=== PATIENT | female | born 1935 | race Caucasian/White ===

== ENCOUNTER 2018-08-30 09:03 | Inpatient (IN) | payer MEDICARE, BC ==
[2018-08-30] MEDS ORDERED: Metoprolol Tartrate 50 MG Tab PO ONE (09:28)
[2018-08-30] MEDS ORDERED: Aspirin 81 MG Tab.Chew PO ONE (09:28)
--- NOTE | 2018-08-30 09:38 | EDM.PDOC ---
ED HPI GENERAL MEDICAL PROBLEM - General Chief Complaint: Respiratory Problem Stated Complaint: SHORTNESS OF BREATH Time Seen by Provider: 08/30/18 09:25 Source of Information: Reports: Patient History Limitations: Reports: Other (minimal available medical records ) - History of Present Illness INITIAL COMMENTS - FREE TEXT/NARRATIVE: 82 yo female visiting from outside the area for the past few days with plans to be here for most of the week presents with SOB that began last night. Denies a hx of afib. No fever. No calf pain. No chest pain. No hx of having an ECHO. Denies orthopnea. Onset: Sudden Onset Date: 08/29/18 Onset Time: 21:00 Duration: Hour(s):, Constant Location: Reports: Chest Quality: Reports: Other (no pain) Severity: Moderate Improves with: Reports: Rest Worsens with: Reports: Movement Context: Reports: Other (see HPI) Associated Symptoms: Reports: Shortness of Breath. 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: Other (see below) (none) - Related Data Allergies Allergy/AdvReac Type Severity Reaction Status Date / Time No Known Allergies Allergy Verified 09/18/15 20:37 Home Meds: Home Meds Lisinopril 10 mg PO DAILY 09/18/15 [History] Oxybutynin Chloride 5 mg PO BID 09/18/15 [History] Past Medical History HEENT History: Reports: Cataract Cardiovascular History: Reports: Hypertension Genitourinary History: Reports: Urinary Incontinence Musculoskeletal History: Reports: Osteoarthritis Dermatologic History: Reports: Other (See Below) Other Dermatologic History: rosasea - Past Surgical History HEENT Surgical History: Reports: Cataract Surgery Female Surgical History: Reports: Hysterectomy Musculoskeletal Surgical History: Reports: Knee Replacement Social & Family History - Tobacco Use Smoking Status *Q: Never Smoker - Caffeine Use Caffeine Use: Reports: Coffee - Recreational Drug Use Recreational Drug Use: No - Living Situation & Occupation Living situation: Reports: Occupation: Retired ED ROS GENERAL - Review of Systems Review Of Systems: See Below Constitutional: Reports: No Symptoms HEENT: Reports: No Symptoms Respiratory: Reports: Shortness of Breath, Cough. Denies: Wheezing, Pleuritic Chest Pain, Sputum, Hemoptysis Cardiovascular: Reports: No Symptoms Endocrine: Reports: No Symptoms GI/Abdominal: Reports: No Symptoms : Reports: No Symptoms Musculoskeletal: Reports: No Symptoms Skin: Reports: No Symptoms Neurological: Reports: No Symptoms Psychiatric: Reports: No Symptoms ED EXAM, GENERAL - Physical Exam Exam: See Below Exam Limited By: No Limitations General Appearance: Alert, WD/WN, No Apparent Distress Eye Exam: Bilateral Eye: Normal Inspection Ears: Normal External Exam, Normal Canal, Normal TMs Ear Exam: Bilateral Ear: Auricle Normal, Canal Normal Nose: Normal Inspection, Normal Mucosa, No Blood Throat/Mouth: Normal Inspection, Normal Lips, Normal Oropharynx, Normal Voice, No Airway Compromise Head: Atraumatic, Normocephalic Neck: Normal Inspection Respiratory/Chest: No Respiratory Distress, No Accessory Muscle Use, Rales ( lower half of both lungs) Cardiovascular: No Edema, Tachycardia, Irregularly Irregular GI/Abdominal: Normal Bowel Sounds, Soft, Non-Tender, No Distention Extremities: Normal Inspection, Normal Range of Motion, Non-Tender, No Pedal Edema Neurological: Alert, Oriented, CN II-XII Intact, Normal Cognition, No Motor/ Sensory Deficits Psychiatric: Normal Affect, Normal Mood Skin Exam: Warm, Dry, Intact, Normal Color, No Rash EKG INTERPRETATION EKG Date: 08/30/18 Time: 09:20 Rhythm: A-Fib Rate (Beats/Min): 129 [place]: Normal P-Wave: Absent QRS: LBBB ST-T: Normal QT: Normal Comparison: NA - No Prior EKG Course - Vital Signs Text/Narrative:: [id number] score=4 Last Recorded V/S: Last Vital Signs Temp 36.5 C 08/30/18 09:24 Pulse 113 H 08/30/18 10:29 Resp 25 H 08/30/18 10:10 BP 142/94 H 08/30/18 10:29 Pulse Ox 95 08/30/18 10:10 - Orders/Labs/Meds Orders: Active Orders 24 hr Category Date Time Status Cardiac Monitoring [RC] .As Directed Care 08/30/18 09:27 Active EKG Documentation Completion [RC] ASDIRECTED Care 08/30/18 09:27 Active EKG 12 Lead [EK] Routine Ther 08/30/18 09:27 Ordered Labs: Laboratory Tests 08/30/18 08/30/18 08/30/18 Range/Units 09:25 09:25 09:25 WBC (4.5-11.0) K/uL RBC (3.30-5.50) M/uL Hgb (12.0-15.0) g/dL Hct (36.0-48.0) % MCV (80-98) fL MCH (27-31) pg MCHC (32-36) % Plt Count (150-400) K/uL D-Dimer, Quantitative 850 H (0.0-400.0) ng/mL Sodium 140 (140-148) mmol/L Potassium 4.2 (3.6-5.2) mmol/L Chloride 108 (100-108) mmol/L Carbon Dioxide 24 (21-32) mmol/L Anion Gap 7.8 (5.0-14.0) mmol/L BUN 20 H (7-18) mg/dL Creatinine 0.9 (0.6-1.0) mg/dL Est Cr Clr Drug Dosing 52.10 mL/min Estimated GFR (MDRD) > 60 (>60) Glucose 128 H (74-106) mg/dL Calcium 9.0 (8.5-10.1) mg/dL Troponin I < 0.017 (0.000-0.056) ng/mL TSH, Ultra Sensitive 1.672 (0.358-3.740) uIU/mL 08/30/18 Range/Units 09:33 WBC 6.7 (4.5-11.0) K/uL RBC 4.41 (3.30-5.50) M/uL Hgb 13.5 (12.0-15.0) g/dL Hct 41.9 (36.0-48.0) % MCV 95 (80-98) fL MCH 31 (27-31) pg MCHC 32 (32-36) % Plt Count 152 (150-400) K/uL D-Dimer, Quantitative (0.0-400.0) ng/mL Sodium (140-148) mmol/L Potassium (3.6-5.2) mmol/L Chloride (100-108) mmol/L Carbon Dioxide (21-32) mmol/L Anion Gap (5.0-14.0) mmol/L BUN (7-18) mg/dL Creatinine (0.6-1.0) mg/dL Est Cr Clr Drug Dosing mL/min Estimated GFR (MDRD) (>60) Glucose (74-106) mg/dL Calcium (8.5-10.1) mg/dL Troponin I (0.000-0.056) ng/mL TSH, Ultra Sensitive (0.358-3.740) uIU/mL Meds: Medications Discontinued Medications Generic Name Dose Route Start Last Admin Trade Name Dylan PRN Reason Stop Dose Admin Aspirin 324 mg 08/30/18 09:28 08/30/18 09:32 Aspirin PO 08/30/18 09:29 324 mg ONETIME ONE Administration Furosemide 40 mg 08/30/18 10:26 08/30/18 10:29 Lasix IVPUSH 08/30/18 10:27 40 mg ONETIME ONE Administration Metoprolol Tartrate 50 mg 08/30/18 09:28 08/30/18 09:32 Lopressor PO 08/30/18 09:29 50 mg ONETIME ONE Administration Metoprolol Tartrate 25 mg 08/30/18 10:24 08/30/18 10:29 Lopressor PO 08/30/18 10:25 25 mg ONETIME ONE Administration - Radiology Interpretation Free Text/Narrative:: CXR- Departure - Departure Time of Disposition: 11:57 Disposition: Admitted As Inpatient 68 Condition: Fair Clinical Impression: Atrial fibrillation with RVR CHF (congestive heart failure) Qualifiers: Heart failure type: unspecified Heart failure chronicity: acute Qualified Code( s): I50.9 - Heart failure, unspecified - Discharge Information *PRESCRIPTION DRUG MONITORING PROGRAM REVIEWED*: No *COPY OF PRESCRIPTION DRUG MONITORING REPORT IN PATIENT NAVEEN: No Referrals: PCP,None [Primary Care Provider] - Forms: ED Department Discharge - My Orders Last 24 Hours: My Active Orders 08/30/18 09:27 Cardiac Monitoring [RC] .As Directed EKG Documentation Completion [RC] ASDIRECTED EKG 12 Lead [EK] Routine - Assessment/Plan Last 24 Hours: My Active Orders 08/30/18 09:27 Cardiac Monitoring [RC] .As Directed EKG Documentation Completion [RC] ASDIRECTED EKG 12 Lead [EK] Routine
[2018-08-30] MEDS ORDERED: Metoprolol Tartrate 25 MG Tab PO ONE (10:24)
[2018-08-30] MEDS ORDERED: Furosemide 40 MG/4 ML VIAL IVPUSH ONE (10:26)
--- NOTE | 2018-08-30 10:45 | CRLCR ---
INDICATION: Shortness of breath. TECHNIQUE: Two views the chest PA and lateral. COMPARISON: None. FINDINGS: External monitoring leads are seen overlying the patient. Heart is mildly enlarged. There are linear interstitial lines near the costophrenic angles suggesting Dulce B-lines/interstitial edema. No large consolidations or pleural effusions. No pneumothorax. Mild degenerative changes of thoracic spine. IMPRESSION: Probable mild CHF with Dulce B-lines/interstitial edema Dictated by Talib Nunez MD @ Aug 30 2018 10:41AM Signed by Dr. Talib Nunez @ Aug 30 2018 10:44AM
[2018-08-30] MEDS ORDERED: Diltiazem 125 MG in Sodium Chloride 0.9% 100 ML IV SCH (12:15)
[2018-08-30] MEDS ORDERED: Sodium Chloride 0.9% 1,000 ML IV SCH (12:15)
--- NOTE | 2018-08-30 12:25 | PCM.HP ---
H&P History of Present Illness - General Date of Service: 08/30/18 Admit Problem/Dx: Admission Diagnosis/Problem Admission Diagnosis/Problem CHF, Congestive heart failure Source of Information: Patient, Provider History Limitations: Reports: No Limitations - History of Present Illness Initial Comments - Free Text/Narative: CC: I can't catch my breath Chiquita presents to the emergency room today with shortness of breath that has worsened over the past 48 hours. She reports feeling fatigued for the past month and then over the past 48 hours she has developed initially mild and moderate in today with severe shortness of breath. She reports of feeling winded with more moderate exertion a couple of days ago before exertion with mild activity yesterday last night and today feeling short of breath with essentially any activity. She does not report any chest pain or orthopnea. She has not noticed lower extremity swelling. She does not have a cough. She has not had any fevers. She does not that her abdomen feels more full than usual but has not had any abdominal pain. No change in bowel or bladder habits from her baseline. She has recently traveled from the [employer] to the area but has not traveled otherwise. She does not report a history of heart disease or dysrhythmia. Workup in the emergency room revealed evidence for congestive heart failure as well as atrial fibrillation with rapid ventricular response. Labs are unremarkable. She has received furosemide and doses of metoprolol. She will be admitted for additional management. - Related Data Allergies/Adverse Reactions: Allergies Allergy/AdvReac Type Severity Reaction Status Date / Time No Known Allergies Allergy Verified 09/18/15 20:37 Home Medications: Home Meds Lisinopril 10 mg PO DAILY 09/18/15 [History] Oxybutynin Chloride 5 mg PO BID 09/18/15 [History] Past Medical History HEENT History: Reports: Cataract Cardiovascular History: Reports: Hypertension Genitourinary History: Reports: Urinary Incontinence Musculoskeletal History: Reports: Osteoarthritis Dermatologic History: Reports: Other (See Below) Other Dermatologic History: rosasea - Past Surgical History HEENT Surgical History: Reports: Cataract Surgery Female Surgical History: Reports: Hysterectomy Musculoskeletal Surgical History: Reports: Knee Replacement Social & Family History - Family History Cardiac: Denies: CAD, Heart Failure - Tobacco Use Smoking Status *Q: Never Smoker - Caffeine Use Caffeine Use: Reports: Coffee - Alcohol Use Alcohol Use History: No - Recreational Drug Use Recreational Drug Use: No - Living Situation & Occupation Living situation: Reports: Occupation: Retired H&P Review of Systems - Review of Systems: Review Of Systems: See Below Free Text/Narrative: A complete 12 point review of systems was obtained. Pertinent positives and negatives are noted in the history of present illness. All other systems were reviewed and were negative except as noted. Exam - Exam Exam: See Below - Vital Signs Vital Signs: Last Vital Signs Temp 36.5 C 08/30/18 09:24 Pulse 113 H 08/30/18 10:29 Resp 25 H 08/30/18 10:10 BP 142/94 H 08/30/18 10:29 Pulse Ox 95 08/30/18 10:10 Weight: 92.986 kg - Exam Quality Assessment: No: Supplemental Oxygen General: Alert, Oriented, Cooperative. No: Mild Distress HEENT: Conjunctiva Clear, Mucosa Moist & [place]. No: Scleral Icterus Neck: Supple, JVD. No: Lymphadenopathy Lungs: Normal Respiratory Effort, Crackles (mild diffuse) Cardiovascular: Irregular Rhythm, Tachycardia. No: Systolic Murmur GI/Abdominal Exam: Normal Bowel Sounds, Soft, Non-Tender, No Distention Back Exam: Normal Inspection. No: Vertebral Tenderness Extremities: No Pedal Edema. No: Increased Warmth Peripheral Pulses: 2+: Dorsalis Pedis (L), Dorsalis Pedis (R) Skin: Warm, Dry Neuro Extensive - Mental Status: Alert, Oriented x3, Nl Response to Commands Neuro Extensive - Motor, Sensory, Reflexes: No: Dysarthria, Abnormal Motor, Tremor Psychiatric: Alert, Normal Affect - Patient Data Lab Results Last 24 hrs: Laboratory Results - last 24 hr 08/30/18 08/30/18 08/30/18 Range/Units 09:25 09:25 09:25 WBC (4.5-11.0) K/uL RBC (3.30-5.50) M/uL Hgb (12.0-15.0) g/dL Hct (36.0-48.0) % MCV (80-98) fL MCH (27-31) pg MCHC (32-36) % Plt Count (150-400) K/uL D-Dimer, Quantitative 850 H (0.0-400.0) ng/mL Sodium 140 (140-148) mmol/L Potassium 4.2 (3.6-5.2) mmol/L Chloride 108 (100-108) mmol/L Carbon Dioxide 24 (21-32) mmol/L Anion Gap 7.8 (5.0-14.0) mmol/L BUN 20 H (7-18) mg/dL Creatinine 0.9 (0.6-1.0) mg/dL Est Cr Clr Drug Dosing 52.10 mL/min Estimated GFR (MDRD) > 60 (>60) Glucose 128 H (74-106) mg/dL Calcium 9.0 (8.5-10.1) mg/dL Troponin I < 0.017 (0.000-0.056) ng/mL TSH, Ultra Sensitive 1.672 (0.358-3.740) uIU/mL 08/30/18 Range/Units 09:33 WBC 6.7 (4.5-11.0) K/uL RBC 4.41 (3.30-5.50) M/uL Hgb 13.5 (12.0-15.0) g/dL Hct 41.9 (36.0-48.0) % MCV 95 (80-98) fL MCH 31 (27-31) pg MCHC 32 (32-36) % Plt Count 152 (150-400) K/uL D-Dimer, Quantitative (0.0-400.0) ng/mL Sodium (140-148) mmol/L Potassium (3.6-5.2) mmol/L Chloride (100-108) mmol/L Carbon Dioxide (21-32) mmol/L Anion Gap (5.0-14.0) mmol/L BUN (7-18) mg/dL Creatinine (0.6-1.0) mg/dL Est Cr Clr Drug Dosing mL/min Estimated GFR (MDRD) (>60) Glucose (74-106) mg/dL Calcium (8.5-10.1) mg/dL Troponin I (0.000-0.056) ng/mL TSH, Ultra Sensitive (0.358-3.740) uIU/mL Result Diagrams: 08/30/18 09:33 08/30/18 09:25 Imaging Impressions Last 24 hrs: CXR - images personally reviewed - there are diffuse bilateral interstitial changes c/w pulmonary edema. Heart size is mildly enlarged. small bilateral effusions. No mass or infiltrate EKG INTERPRETATION EKG Date: 08/30/18 Rhythm: A-Fib Rate (Beats/Min): 129 [place]: LAD-Left [place] Deviation P-Wave: Variable QRS: Normal ST-T: Normal QT: Normal Comparison: NA - No Prior EKG *Q Meaningful Use (ADM) - VTE Risk Assess *Q Each Risk Factor Represents 1 Point: Obesity ( BMI > 25 kg/m2), Congestive heart failure (CHF) Total Score 1 Point Risk Factors: 2 Each Risk Factor Represents 2 Points: None Total Score 2 Point Risk Factors: 0 Each Risk Factor Represents 3 Points: Age 75 Years or Greater Total Score 3 Point Risk Factors: 3 Each Risk Factor Represents 5 Points: None Total Score 5 Point Risk Factors: 0 Venous Thromboembolism Risk Factor Score *Q: 5 - Problem List (1) Atrial fibrillation with RVR SNOMED Code(s): 983914921084508 ICD Code: I48.91 - UNSPECIFIED ATRIAL FIBRILLATION Status: Acute Current Visit: Yes (2) CHF (congestive heart failure) SNOMED Code(s): 00457450 ICD Code: I50.9 - HEART FAILURE, UNSPECIFIED Status: Acute Current Visit : Yes Qualifiers: Heart failure type: unspecified Heart failure chronicity: acute Qualified Code(s): I50.9 - Heart failure, unspecified Problem List Initiated/Reviewed/Updated: Yes Orders Last 24hrs: Active Orders 24 hr Category Date Time Status Patient Status Manage Transfer [TRANSFER] Routine ADT 08/30/18 12:14 Ordered Cardiac Monitoring [RC] .As Directed Care 08/30/18 09:27 Active EKG Documentation Completion [RC] ASDIRECTED Care 08/30/18 09:27 Active Echo Comp wo Cont [US] Routine Exams 08/30/18 12:13 Ordered Diltiazem 125 mg Med 08/30/18 12:30 Active Sodium Chloride 0.9% [Normal Saline] 100 ml IV TITRATE Sodium Chloride 0.9% [Normal Saline] 1,000 ml Med 08/30/18 12:15 Active IV ASDIRECTED Resuscitation Status Routine Resus Stat 08/30/18 12:15 Ordered EKG 12 Lead [EK] Routine Ther 08/30/18 09:27 Ordered Medication Orders Sodium Chloride (Normal Saline) 1,000 mls @ 25 mls/hr IV ASDIRECTED DA Diltiazem HCl 125 mg/ Sodium (Chloride) 125 mls @ 5 mls/hr IV TITRATE DA; Protocol Assessment/Plan Comment:: ASSESSMENT AND PLAN - Acute congestive heart failure - unknown ejection fraction at this time. No history of heart disease. Unclear if the heart failure or the atrial fibrillation came first. No personal history of heart disease. -Reassess volume status this afternoon, consider repeat furosemide dosing -Beta mary -Hold AUTUMN inhibitor with new medication initiation -Echocardiogram -Supplement oxygen if needed Atrial fibrillation with rapid ventricular response - duration of the dysrhythmia is unclear at this time. We did see some improvement in the rate with metoprolol but I think a combination of a BB and CCB will be best to control her rate short and long-term. Her CHADSSVASC score is 4. We are going to hold off on anticoagulation at this time. 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 -metoprolol BID -dilt gtt -cardiac monitoring -Check magnesium level Maintenance issues - - DVT prophylaxis - enoxaparin - GI prophylaxis - Not indicated - Nutrition - low sodium - Bailey catheter - not indicated CODE STATUS - full code Admission justification - This patient will be admitted for inpatient services and is medically appropriate meeting medical necessity for inpatient admission as outlined in my documentation. I reasonably expect the patient will require inpatient services that span a period time over 2 midnights. I reasonably expect this patient to be discharged or transferred within 96 hours [facility]. Disposition - I would anticipate discharge home after the hospital stay Primary care physician - [facility] Kane Fuchs M.D.
[2018-08-30] MEDS: Diltiazem 125 MG in Sodium Chloride 0.9% 100 ML IV SCH (12:30)
[2018-08-30] MEDS ORDERED: Melatonin 3 MG Tab PO PRN (12:52)
[2018-08-30] MEDS ORDERED: Acetaminophen 325 MG Tab PO PRN (12:52)
[2018-08-30] MEDS ORDERED: Ondansetron 4 MG Tab.DIS PO PRN (12:52)
[2018-08-30] MEDS: Enoxaparin 40 MG/0.4 ML Syringe SUBCUT SCH (14:28)
[2018-08-30] MEDS: Oxybutynin 5 MG Tab PO SCH (21:00)
[2018-08-30] MEDS: Metoprolol Tartrate 25 MG Tab PO SCH (21:09)
[2018-08-31] MEDS ORDERED: Furosemide 20 MG/2 ML VIAL IVPUSH ONE (09:38)
[2018-08-31] MEDS: Metoprolol Tartrate 25 MG Tab PO SCH ×2 (09:39→20:15)
[2018-08-31] MEDS: Oxybutynin 5 MG Tab PO SCH ×2 (09:39→20:16)
[2018-08-31] MEDS: Aspirin 81 MG Tab.EC PO SCH (09:40)
--- NOTE | 2018-08-31 09:40 | PCM.PN ---
- General Info Date of Service: 08/31/18 Subjective Update: There were no acute events overnight. Heart rate control has improved with the diltiazem and metoprolol but she remains slightly tachycardic. No complaints of chest pain. She thinks her shortness of breath is much better today. No lower extremity edema. No fevers. Unable to obtain echocardiogram he did yesterday afternoon or today. Functional Status: Reports: Pain Controlled, Tolerating Diet - Review of Systems Pulmonary: Denies: Shortness of Breath Cardiovascular: Denies: Chest Pain - Patient Data Vitals - Most Recent: Last Vital Signs Temp 36.0 C 08/31/18 04:00 Pulse 93 08/31/18 09:00 Resp 16 08/31/18 09:00 BP 116/73 08/31/18 09:00 Pulse Ox 94 L 08/31/18 09:00 Weight - Most Recent: 93.349 kg I&O - Last 24 Hours: Intake & Output 08/30/18 08/31/18 08/31/18 22:59 06:59 14:59 Intake Total 360 335 Output Total 1250 475 Balance -890 -140 Lab Results Last 24 Hours: Laboratory Results - last 24 hr 08/30/18 08/30/18 08/30/18 Range/Units 09:25 09:25 09:25 WBC (4.5-11.0) K/uL RBC (3.30-5.50) M/uL Hgb (12.0-15.0) g/dL Hct (36.0-48.0) % MCV (80-98) fL MCH (27-31) pg MCHC (32-36) % Plt Count (150-400) K/uL D-Dimer, Quantitative 850 H (0.0-400.0) ng/mL Sodium 140 (140-148) mmol/L Potassium 4.2 (3.6-5.2) mmol/L Chloride 108 (100-108) mmol/L Carbon Dioxide 24 (21-32) mmol/L Anion Gap 7.8 (5.0-14.0) mmol/L BUN 20 H (7-18) mg/dL Creatinine 0.9 (0.6-1.0) mg/dL Est Cr Clr Drug Dosing 52.10 mL/min Estimated GFR (MDRD) > 60 (>60) Glucose 128 H (74-106) mg/dL Calcium 9.0 (8.5-10.1) mg/dL Magnesium (1.8-2.4) mg/dL Troponin I < 0.017 (0.000-0.056) ng/mL TSH, Ultra Sensitive 1.672 (0.358-3.740) uIU/mL Urine Color Urine Appearance Urine pH (4.5-8.0) Ur Specific [place] (1.008-1.030) Urine Protein (NEGATIVE) mg/dL Urine Glucose (UA) (NEGATIVE) mg/dL Urine Ketones (NEGATIVE) mg/dL Urine Occult Blood (NEGATIVE) Urine Nitrite (NEGATIVE) Urine Bilirubin (NEGATIVE) Urine Urobilinogen (NORMAL) mg/dL Ur Leukocyte Esterase (NEGATIVE) Urine RBC (0-5) Urine WBC (0-5) Ur Epithelial Cells Amorphous Sediment Urine Bacteria Urine Mucus 08/30/18 08/30/18 08/31/18 Range/Units 13:03 13:35 04:00 WBC 6.3 (4.5-11.0) K/uL RBC 4.20 (3.30-5.50) M/uL Hgb 12.5 (12.0-15.0) g/dL Hct 40.2 (36.0-48.0) % MCV 96 (80-98) fL MCH 30 (27-31) pg MCHC 31 L (32-36) % Plt Count 139 L (150-400) K/uL D-Dimer, Quantitative (0.0-400.0) ng/mL Sodium (140-148) mmol/L Potassium (3.6-5.2) mmol/L Chloride (100-108) mmol/L Carbon Dioxide (21-32) mmol/L Anion Gap (5.0-14.0) mmol/L BUN (7-18) mg/dL Creatinine (0.6-1.0) mg/dL Est Cr Clr Drug Dosing mL/min Estimated GFR (MDRD) (>60) Glucose (74-106) mg/dL Calcium (8.5-10.1) mg/dL Magnesium 1.9 (1.8-2.4) mg/dL Troponin I (0.000-0.056) ng/mL TSH, Ultra Sensitive (0.358-3.740) uIU/mL Urine Color Yellow Urine Appearance Clear Urine pH 5.0 (4.5-8.0) Ur Specific [place] 1.010 (1.008-1.030) Urine Protein Negative (NEGATIVE) mg/dL Urine Glucose (UA) Normal (NEGATIVE) mg/dL Urine Ketones Negative (NEGATIVE) mg/dL Urine Occult Blood Negative (NEGATIVE) Urine Nitrite Negative (NEGATIVE) Urine Bilirubin Negative (NEGATIVE) Urine Urobilinogen Normal (NORMAL) mg/dL Ur Leukocyte Esterase Negative (NEGATIVE) Urine RBC Not seen (0-5) Urine WBC 0-5 (0-5) Ur Epithelial Cells Few Amorphous Sediment Few Urine Bacteria Not seen Urine Mucus Not seen 08/31/18 Range/Units 04:00 WBC (4.5-11.0) K/uL RBC (3.30-5.50) M/uL Hgb (12.0-15.0) g/dL Hct (36.0-48.0) % MCV (80-98) fL MCH (27-31) pg MCHC (32-36) % Plt Count (150-400) K/uL D-Dimer, Quantitative (0.0-400.0) ng/mL Sodium 143 (140-148) mmol/L Potassium 4.0 (3.6-5.2) mmol/L Chloride 107 (100-108) mmol/L Carbon Dioxide 27 (21-32) mmol/L Anion Gap 8.9 (5.0-14.0) mmol/L BUN 20 H (7-18) mg/dL Creatinine 0.9 (0.6-1.0) mg/dL Est Cr Clr Drug Dosing 50.29 mL/min Estimated GFR (MDRD) > 60 (>60) Glucose 100 (74-106) mg/dL Calcium 8.9 (8.5-10.1) mg/dL Magnesium (1.8-2.4) mg/dL Troponin I (0.000-0.056) ng/mL TSH, Ultra Sensitive (0.358-3.740) uIU/mL Urine Color Urine Appearance Urine pH (4.5-8.0) Ur Specific [place] (1.008-1.030) Urine Protein (NEGATIVE) mg/dL Urine Glucose (UA) (NEGATIVE) mg/dL Urine Ketones (NEGATIVE) mg/dL Urine Occult Blood (NEGATIVE) Urine Nitrite (NEGATIVE) Urine Bilirubin (NEGATIVE) Urine Urobilinogen (NORMAL) mg/dL Ur Leukocyte Esterase (NEGATIVE) Urine RBC (0-5) Urine WBC (0-5) Ur Epithelial Cells Amorphous Sediment Urine Bacteria Urine Mucus Med Orders - Current: Current Medications Acetaminophen (Tylenol) 650 mg PO Q4H PRN PRN Reason: Pain (Mild 1-3)/fever Aspirin (Halfprin) 81 mg PO DAILY [facility] Enoxaparin Sodium (Lovenox) 40 mg SUBCUT Q24H [facility] Last Admin: 08/30/18 14:28 Dose: 40 mg Furosemide (Lasix) 20 mg IVPUSH ONETIME ONE Stop: 08/31/18 09:39 Sodium Chloride (Normal Saline) 1,000 mls @ 25 mls/hr IV ASDIRECTED [facility] Last Admin: 08/30/18 12:30 Dose: 25 mls/hr Diltiazem HCl 125 mg/ Sodium (Chloride) 125 mls @ 5 mls/hr IV TITRATE DA; Protocol Last Titration: 08/31/18 09:38 Dose: Infused Melatonin (Melatonin) 9 mg PO BEDTIME PRN PRN Reason: Sleep Metoprolol Tartrate (Lopressor) 12.5 mg PO Q12H [facility] Last Admin: 08/30/18 21:09 Dose: 25 mg Ondansetron HCl (Zofran Odt) 4 mg PO Q6H PRN PRN Reason: Nausea able to take PO Oxybutynin Chloride (Oxybutynin) 5 mg PO BID [facility] Last Admin: 08/30/18 21:00 Dose: 5 mg Senna/Docusate Sodium (Senna Plus) 1 tab PO BID PRN PRN Reason: Constipation Discontinued Medications Aspirin (Aspirin) 324 mg PO ONETIME ONE Stop: 08/30/18 09:29 Last Admin: 08/30/18 09:32 Dose: 324 mg Furosemide (Lasix) 40 mg IVPUSH ONETIME ONE Stop: 08/30/18 10:27 Last Admin: 08/30/18 10:29 Dose: 40 mg Metoprolol Tartrate (Lopressor) 50 mg PO ONETIME ONE Stop: 08/30/18 09:29 Last Admin: 08/30/18 09:32 Dose: 50 mg Metoprolol Tartrate (Lopressor) 25 mg PO ONETIME ONE Stop: 08/30/18 10:25 Last Admin: 08/30/18 10:29 Dose: 25 mg - Exam Quality Assessment: No: Supplemental Oxygen General: Alert, Oriented, Cooperative, No Acute Distress Neck: Supple, JVD Lungs: Normal Respiratory Effort, Crackles (both bases) Cardiovascular: Irregular Rhythm, Tachycardia GI/Abdominal Exam: Soft, No Distention Extremities: No Pedal Edema. No: Increased Warmth Skin: Warm, Dry Psy/Mental Status: Alert, Normal Affect - Problem List & Annotations (1) Atrial fibrillation with RVR SNOMED Code(s): 982445975011541 Code(s): I48.91 - UNSPECIFIED ATRIAL FIBRILLATION Status: Acute Current Visit: Yes (2) CHF (congestive heart failure) SNOMED Code(s): 99600828 Code(s): I50.9 - HEART FAILURE, UNSPECIFIED Status: Acute Current Visit: Yes Qualifiers: Heart failure type: unspecified Heart failure chronicity: acute Qualified Code(s): I50.9 - Heart failure, unspecified - Problem List Review Problem List Initiated/Reviewed/Updated: Yes - My Orders Last 24 Hours: My Active Orders 08/30/18 12:13 Echo Comp wo Cont [US] Routine 08/30/18 12:15 Sodium Chloride 0.9% [Normal Saline] 1,000 ml IV ASDIRECTED Resuscitation Status Routine 08/30/18 12:30 Diltiazem 125 mg Sodium Chloride 0.9% [Normal Saline] 100 ml IV TITRATE 08/30/18 12:52 Patient Status [ADT] Routine Cardiac Monitoring [RC] Q6H Height and Weight [RC] DAILY Intake and Output [RC] Q12H Notify Provider Vital Signs [RC] ASDIRECTED Oxygen Therapy [RC] PRN Up With Assistance [RC] ASDIRECTED Vital Signs [RC] Q1H Acetaminophen [Tylenol] 650 mg PO Q4H PRN Docusate Sodium/Sennosides [Senna Plus] 1 tab PO BID PRN Melatonin 9 mg PO BEDTIME PRN Ondansetron [Zofran ODT] 4 mg PO Q6H PRN 08/30/18 14:00 Enoxaparin [Lovenox] 40 mg SUBCUT Q24H 08/30/18 21:00 Metoprolol Tartrate [Lopressor] 12.5 mg PO Q12H Oxybutynin 5 mg PO BID 08/30/18 Lunch 2 Gram Sodium Diet [DIET] 08/31/18 07:00 Echo Comp wo Cont [US] Routine 08/31/18 09:00 Aspirin [Halfprin] 81 mg PO DAILY 08/31/18 09:38 Furosemide [Lasix] 20 mg IVPUSH ONETIME ONE 09/01/18 07:00 Echo Comp wo Cont [US] Routine - Plan Plan:: ASSESSMENT AND PLAN - Acute congestive heart failure - unknown ejection fraction at this time. No history of heart disease. Still mild JVD but much better compensated today. -Furosemide 20 mg IV 1 this morning -Beta mary -Hold AUTUMN inhibitor with new medication initiation -Echocardiogram tomorrow -Supplement oxygen if needed Atrial fibrillation with rapid ventricular response - duration of the dysrhythmia is unclear at this time. Her CHADSSVASC score is 4. We are going to hold off on anticoagulation until she can follow-up with her primary care. Rate control improved but still suboptimal -metoprolol BID -dilt gtt, increased to 7.5 mg, transition to oral once rate control achieved -cardiac monitoring Maintenance issues - - DVT prophylaxis - enoxaparin - GI prophylaxis - Not indicated - Nutrition - low sodium Disposition - I would anticipate discharge home after the hospital stay Primary care physician - [facility] Kane Fuchs M.D.
[2018-08-31] MEDS: Diltiazem 125 MG in Sodium Chloride 0.9% 100 ML IV SCH (11:41)
[2018-08-31] MEDS: Diltiazem IR 30 MG Tab PO SCH ×2 (14:56→20:16)
[2018-08-31] MEDS: Enoxaparin 40 MG/0.4 ML Syringe SUBCUT SCH (14:57)
[2018-09-01] MEDS: Diltiazem IR 30 MG Tab PO SCH (02:27)
[2018-09-01] MEDS ORDERED: Diltiazem IR 30 MG Tab PO ONE (03:00)
[2018-09-01] MEDS: Oxybutynin 5 MG Tab PO SCH (08:06)
[2018-09-01] MEDS: Aspirin 81 MG Tab.EC PO SCH (08:07)
[2018-09-01 08:17] VITALS: BP 113/65
[2018-09-01] MEDS ORDERED: Diltiazem 120 MG Cap.CD PO ONE (08:25)
[2018-09-01] MEDS ORDERED: Metoprolol Succinate 25 MG Tab.ER PO SCH (09:00)
[2018-09-01] MEDS ORDERED: Diltiazem 180 MG Cap.CD PO SCH (09:00)
--- NOTE | 2018-09-01 09:23 | PCM.DCSUM1 ---
Discharge Summary - Hospital Course Brief History: 82-year-old female with history of hypertension and chronic bladder incontinence who presented with shortness of breath and fatigue. She was admitted from the emergency room for management of congestive heart failure and rapid atrial fibrillation. Diagnosis: Stroke: No - Discharge Data Discharge Date: 09/01/18 Discharge Disposition: Home, Self-Care 01 Condition: Good - Discharge Diagnosis/Problem(s) (1) Atrial fibrillation with RVR SNOMED Code(s): 402164124592368 ICD Code: I48.91 - UNSPECIFIED ATRIAL FIBRILLATION Status: Acute Current Visit: Yes (2) CHF (congestive heart failure) SNOMED Code(s): 64910334 ICD Code: I50.9 - HEART FAILURE, UNSPECIFIED Status: Acute Current Visit : Yes Qualifiers: Heart failure type: systolic Heart failure chronicity: acute Qualified Code(s): I50.21 - Acute systolic (congestive) heart failure - Patient Summary/Data Hospital Course: Chiquita presented to the emergency room with 2 days of progressive shortness of breath and fatigue. Workup in the emergency room was suggestive of congestive heart failure with examination suggesting volume overload and chest x-ray showing pulmonary edema. She was also in atrial fibrillation with a heart rate in the 130s. She received several doses of metoprolol with some improvement in her heart rate. She received furosemide. Towards the end of the hospital stay she was started on a diltiazem infusion. Laboratory studies were fairly unremarkable with normal kidney function and a negative troponin. TSH was normal. She was admitted to the hospital with the diltiazem infusion. A low- dose beta mayr was also initiated every 12 hours. She received a second dose of IV diuresis the morning after admission. Volume status appears to be euvolemic following this second dose. We initially titrated the diltiazem with the IV route and once a seemingly appropriate dose was found at 7.5 mg we transitioned to oral medications. Unfortunately the oral diltiazem was not quite as effective and we had increased the dose slightly. On the morning of discharge she received 300 mg of long-acting diltiazem. She is on 25 mg of long- acting metoprolol. Her heart rate is rate around 100. She feels well and has no symptoms. She has been up and walking around in the room. Volume status appears to be euvolemic today. We did complete an echocardiogram on the morning of discharge. This showed an ejection fraction of 45-50%. No significant abnormalities with the aortic or mitral valve. She did have trace pulmonary and mild tricuspid regurgitation. There was very mild global hypokinesis but no significant wall motion abnormalities. She feels well and her vital signs have remained stable. We did discontinue her home lisinopril to allow more blood pressure for titrating rate slowing medications. Blood pressures have been around 110 systolic with the above medications and discontinuation of the lisinopril. We did discuss systemic anticoagulation and have elected to hold off until she follows up with her primary care. Her CHADSSVASC score is 4 (HTN, age, female) even without the inclusion of heart failure which is new and not considered chronic at this time. She will be taking a baby aspirin daily. She is stable and safe for discharge at this time. She will be returning home and has early follow-up planned. Prior to presentation she reported about one month of fatigue before onset of the shortness of breath and I suspect that she went into atrial fibrillation about one month ago and has developed a tachycardia induced cardiomyopathy. Hopefully the rate slowing medications will help improve her cardiac function over time. - Patient Instructions Diet: Heart Healthy Diet Activity: As Tolerated Showering/Bathing: May Shower Notify Provider of: Fever, Increased Pain Other/Special Instructions: 1. You were in the hospital for management of both atrial fibrillation with a rapid ventricular response and congestive heart failure with mild volume overload. Your echocardiogram showed a mildly reduced ejection fraction at 50%. Your condition has been improving with rate control of the atrial fibrillation. You did receive diuretic therapy to help reduce the extra fluid in your body because of the congestive heart failure. I would recommend that you eat a diet low in salt to help avoid retaining excess fluid. I recommend that you take a baby aspirin once daily. To help keep your heart rate slow I have prescribed 2 new medications outlined below: --Metoprolol succinate 25 mg tablet - take 1 tablet daily in the morning. This medication helps to keep your heart rate slow and blocks excitatory hormones that can speed up your heart rate. --Diltiazem 300 mg capsule - take 1 capsule daily in the morning. This medication also helps to keep your heart rate slow. ----The next dose for both of these medications will be due on Wednesday. 2. Stop taking your lisinopril. 3. Follow up with your primary care early next week. You will need to discuss systemic anticoagulation such as warfarin or one of the newer direct acting oral anticoagulants to help reduce your risk of stroke if you remain in atrial fibrillation. 4. Seek medical attention if you have fever greater than 101, presyncope or syncope, significant shortness of breath or if you develop chest pain/pressure. - Discharge Plan *PRESCRIPTION DRUG MONITORING PROGRAM REVIEWED*: No *COPY OF PRESCRIPTION DRUG MONITORING REPORT IN PATIENT NAVEEN: No Prescriptions/Med Rec: Aspirin [Halfprin] 81 mg PO DAILY #30 tab.ec dilTIAZem HCl [Diltiazem 24Hr Cd] 300 mg PO DAILY #30 cap.er.24h Metoprolol Succinate [Toprol XL] 25 mg PO DAILY #30 tab.er Home Medications: Home Meds Oxybutynin Chloride 5 mg PO BID 09/18/15 [History] Aspirin [Halfprin] 81 mg PO DAILY #30 tab.ec 09/01/18 [Rx] Metoprolol Succinate [Toprol XL] 25 mg PO DAILY #30 tab.er 09/01/18 [Rx] dilTIAZem HCl [Diltiazem 24Hr Cd] 300 mg PO DAILY #30 cap.er.24h 09/01/18 [Rx] Oxygen Therapy Mode: Room Air Patient Handouts: Heart Failure, [id number], Diltiazem extended-release capsules or tablets, Metoprolol extended-release tablets Referrals: PCP,None [Primary Care Provider] - (f/u with your primary care early next week - f/u hospital stay for atrial fibrillation and CHF ) - Discharge Summary/Plan Comment DC Time >30 min.: Yes (40 - CHF education and setting up follow up ) - Patient Data Vitals - Most Recent: Last Vital Signs Temp 36.4 C 09/01/18 08:00 Pulse 101 H 09/01/18 08:35 Resp 20 09/01/18 08:00 BP 113/65 09/01/18 08:35 Pulse Ox 97 09/01/18 06:00 Weight - Most Recent: 93.349 kg I&O - Last 24 hours: Intake & Output 08/31/18 09/01/18 09/01/18 22:59 06:59 14:59 Intake Total 275 480 Output Total 950 Balance -675 480 Med Orders - Current: Current Medications Acetaminophen (Tylenol) 650 mg PO Q4H PRN PRN Reason: Pain (Mild 1-3)/fever Aspirin (Halfprin) 81 mg PO DAILY [facility] Last Admin: 09/01/18 08:07 Dose: 81 mg Diltiazem HCl (Cardizem Cd) 180 mg PO DAILY [facility] Last Admin: 09/01/18 08:17 Dose: 180 mg Enoxaparin Sodium (Lovenox) 40 mg SUBCUT Q24H [facility] Last Admin: 08/31/18 14:57 Dose: 40 mg Melatonin (Melatonin) 9 mg PO BEDTIME PRN PRN Reason: Sleep Metoprolol Succinate (Toprol Xl) 25 mg PO DAILY [facility] Last Admin: 09/01/18 08:17 Dose: 25 mg Ondansetron HCl (Zofran Odt) 4 mg PO Q6H PRN PRN Reason: Nausea able to take PO Oxybutynin Chloride (Oxybutynin) 5 mg PO BID [facility] Last Admin: 09/01/18 08:06 Dose: 5 mg Senna/Docusate Sodium (Senna Plus) 1 tab PO BID PRN PRN Reason: Constipation Discontinued Medications Aspirin (Aspirin) 324 mg PO ONETIME ONE Stop: 08/30/18 09:29 Last Admin: 08/30/18 09:32 Dose: 324 mg Diltiazem HCl (Cardizem) 45 mg PO Q6H [facility] Stop: 09/01/18 08:00 Last Admin: 09/01/18 02:27 Dose: Not Given Diltiazem HCl (Cardizem) 60 mg PO ONETIME ONE Stop: 09/01/18 03:01 Last Admin: 09/01/18 02:36 Dose: 60 mg Diltiazem HCl (Cardizem Cd) 120 mg PO ONETIME ONE Stop: 09/01/18 08:26 Last Admin: 09/01/18 08:35 Dose: 120 mg Furosemide (Lasix) 40 mg IVPUSH ONETIME ONE Stop: 08/30/18 10:27 Last Admin: 08/30/18 10:29 Dose: 40 mg Furosemide (Lasix) 20 mg IVPUSH ONETIME ONE Stop: 08/31/18 09:39 Last Admin: 08/31/18 11:47 Dose: 20 mg Sodium Chloride (Normal Saline) 1,000 mls @ 25 mls/hr IV ASDIRECTED [facility] Stop: 08/31/18 15:00 Last Admin: 08/30/18 12:30 Dose: 25 mls/hr Diltiazem HCl 125 mg/ Sodium (Chloride) 125 mls @ 5 mls/hr IV TITRATE DA; Protocol Stop: 08/31/18 15:00 Last Admin: 08/31/18 11:41 Dose: 7.5 mg/hr, 7.5 mls/hr Metoprolol Tartrate (Lopressor) 50 mg PO ONETIME ONE Stop: 08/30/18 09:29 Last Admin: 08/30/18 09:32 Dose: 50 mg Metoprolol Tartrate (Lopressor) 25 mg PO ONETIME ONE Stop: 08/30/18 10:25 Last Admin: 08/30/18 10:29 Dose: 25 mg Metoprolol Tartrate (Lopressor) 12.5 mg PO Q12H [facility] Stop: 08/31/18 23:59 Last Admin: 08/31/18 20:15 Dose: 12.5 mg - Exam Quality Assessment: Denies: Supplemental Oxygen General: Reports: Alert, Oriented, Cooperative, No Acute Distress Lungs: Reports: Normal Respiratory Effort Cardiovascular: Reports: Regular Rate, Irregular Rhythm GI/Abdominal Exam: Soft, No Distention Extremities: No Pedal Edema Psy/Mental Status: Reports: Alert, Normal Affect
== END 2018-09-01 09:55 | disposition home or self-care (01) | DRG 308 ==
LOC: JP.ED 09:03 → JP.ICU 12:14
PROVIDERS: ADMIT Internal Medicine; ATTEND Internal Medicine
DX: I48.91 Unspecified atrial fibrillation (principal); I50.21 Acute systolic (congestive) heart failure; I50.9 Heart failure, unspecified; I11.0 Hypertensive heart disease with heart failure; R32 Unspecified urinary incontinence; M19.90 Unspecified osteoarthritis, unspecified site; L71.9 Rosacea, unspecified; E66.9 Obesity, unspecified; Z68.30 Body mass index [BMI] 30.0-30.9, adult; R06.02 Shortness of breath; Z90.710 Acquired absence of both cervix and uterus; Z79.899 Other long term (current) drug therapy; Z96.659 Presence of unspecified artificial knee joint
CPT/HCPCS: 36415; 71046; 80048; 84443; 84484; 85027; 85379; 93005; 93010; 96374; 99285 ×2; A9270 ×3; J1940; 81001; 83735; 93306; J1650; J3490; J7030